=== PATIENT | female | born 1990 | race Two or more races ===

== ENCOUNTER 2018-06-02 10:58 | Emergency (ER) | payer OTHER ==
[~2018-06-02] VITALS: Ht 160 cm; Wt 70.3 kg
[~2018-06-02 10:58] MED LIST: Hydrocodone/Acetaminophen PO; Ibuprofen PO; PNV1TABL25 PO
[2018-06-02] MEDS ORDERED: ACETAMINOPHEN 500 MG TABLET PO ONE (11:30)
[2018-06-02 11:37] LABS: BILIRUBIN,URINE NEGATIVE (NEG); CLARITY,URINE CLEAR; COLOR,URINE YELLOW; NITRITE,URINE NEGATIVE (NEG); PH,URINE 6.5; PROTEIN,URINE NEGATIVE (NEG-TRACE); UROBILINOGEN,URINE 0.2 mg/dL (0.2 mg/dL)
[2018-06-02 11:48] LABS: BACTERIA,URINE 0 /HPF (0-FEW); RBC,URINE 0 /HPF (0-2); SQUAMOUS EPITHELIAL CELL,UR OCC /LPF; WBC,URINE 0 /HPF (0-4)
[2018-06-02 12:03] LABS: BASO # 0.1 x10^3/uL (0.0-0.2); BASO % 1 % (0-3); EOS # 0.1 x10^3/uL (0.0-0.7); EOS % 1 % (0-3); HEMATOCRIT 38.2 % (36.0-47.0); HEMOGLOBIN 13.5 g/dL (12.0-15.5); LYMPH # 2.6 x10^3/uL (1.0-4.8); LYMPH % 30 % (24-48); MEAN CORPUSCULAR HEMOGLOBIN 32 pg (25-35); MEAN CORPUSCULAR HGB CONC 35 g/dL (31-37); MEAN CORPUSCULAR VOLUME 90 fL (79-100); MONO # 0.6 x10^3/uL (0.0-1.1); MONO % 6 % (0-9); NEUT # 5.6 x10^3uL (1.8-7.7); NEUT % 63 % (31-73); PLATELET COUNT 276 x10^3/uL (140-400); RED BLOOD COUNT 4.27 x10^6/uL (3.50-5.40); RED CELL DISTRIBUTION WIDTH 13.6 % (11.5-14.5); WHITE BLOOD COUNT 8.9 x10^3/uL (4.0-11.0)
--- NOTE | 2018-06-02 12:24 | PHYS DOC ---
Past Medical History Past Medical History: Anxiety Past Surgical History: Cholecystectomy, Other Additional Past Surgical Histo: lipo Alcohol Use: Occasionally Drug Use: None Adult General Chief Complaint Chief Complaint: MECHANICAL FALL HPI HPI Patient is a 27 year old F WITH CC OF MECHANICAL FALL, SLIPPED DOWN FOUR STEPS ON THE SNOW BUMPED LEFT LOW BACK CRAMPING RIGHT ABDO INTERMITTENT NONRADIATING HAD SPOTTING FOR A LITTLE WHILE BUT IT STOPPED. TOOK TYLENOL BUT IT IS STILL PRESENT. Review of Systems Review of Systems Constitutional: Denies fever or chills [] Eyes: Denies change in visual acuity, redness, or eye pain [] HENT: Denies nasal congestion or sore throat [] Respiratory: Denies cough or shortness of breath [] Cardiovascular: No additional information not addressed in HPI [] All other systems were reviewed and found to be within normal limits, except as documented in this note. Current Medications Current Medications Current Medications Medications (Trade) Dose Ordered Sig/[place] Start Time Stop Time Status Last Admin Dose Admin Acetaminophen (Tylenol) 1,000 mg 1X ONCE 06/02/18 11:30 06/02/18 11:31 DC 06/02/18 13:19 1,000 MG Allergies Allergies Allergies Coded Allergies Type Severity Reaction Last Updated Verified No Known Drug Allergies 03/09/14 No Physical Exam Physical Exam Constitutional: Well developed, well nourished, no acute distress, non-toxic appearance. [] HENT: Normocephalic, atraumatic, bilateral external ears normal, oropharynx moist, no oral exudates, nose normal. [] Eyes: PERRLA, EOMI, conjunctiva normal, no discharge. [] Neck: Normal range of motion, no tenderness, supple, no stridor. [] Pulmonary: Normal respiratory effort no increased work of breathing no obvious chest wall trauma Abdomen: Bowel sounds normal, soft, MILD RLQ tenderness, no masses, no pulsatile masses. [] Skin: Warm, dry, no erythema, no rash. [] Back: LEFT LOW BACK THERE IS MILD TTP NO OBVIOUS TRAUMA IS SEEN. Extremities: No tenderness, no cyanosis, no clubbing, ROM intact, no edema. [] Neurologic: Alert and oriented X 3, normal motor function, normal sensory function, no focal deficits noted. [] Psychologic: Affect normal, judgement normal, mood normal. [] Current Patient Data Vital Signs Vital Signs Date Time Temp Pulse Resp B/P (MAP) Pulse Ox O2 Delivery O2 Flow Rate FiO2 06/02/18 13:00 78 16 100 06/02/18 11:00 98.5 98/58 (71) Room Air 98.5 Lab Values Laboratory Tests Test 06/02/18 11:00 06/02/18 11:09 06/02/18 11:50 Urine Collection Type Unknown Urine Color Yellow Urine Clarity Clear Urine pH 6.5 Urine Specific Tree[place] 1.025 Urine Protein Negative mg/dL (NEG-TRACE) Urine Glucose (UA) Negative mg/dL (NEG) Urine Ketones (Stick) Negative mg/dL (NEG) Urine Blood Negative (NEG) Urine Nitrite Negative (NEG) Urine Bilirubin Negative (NEG) Urine Urobilinogen Dipstick 0.2 mg/dL (0.2 mg/dL) Urine Leukocyte Esterase Negative (NEG) Urine RBC 0 /HPF (0-2) Urine WBC 0 /HPF (0-4) Urine Squamous Epithelial Cells Occ /LPF Urine Bacteria 0 /HPF (0-FEW) Urine Mucus Mod /LPF POC Urine HCG, Qualitative Hcg positive (Negative) White Blood Count 8.9 x10^3/uL (4.0-11.0) Red Blood Count 4.27 x10^6/uL (3.50-5.40) Hemoglobin 13.5 g/dL (12.0-15.5) Hematocrit 38.2 % (36.0-47.0) Mean Corpuscular Volume 90 fL (79-100) Mean Corpuscular Hemoglobin 32 pg (25-35) Mean Corpuscular Hemoglobin Concent 35 g/dL (31-37) Red Cell Distribution Width 13.6 % (11.5-14.5) Platelet Count 276 x10^3/uL (140-400) Neutrophils (%) (Auto) 63 % (31-73) Lymphocytes (%) (Auto) 30 % (24-48) Monocytes (%) (Auto) 6 % (0-9) Eosinophils (%) (Auto) 1 % (0-3) Basophils (%) (Auto) 1 % (0-3) Neutrophils # (Auto) 5.6 x10^3uL (1.8-7.7) Lymphocytes # (Auto) 2.6 x10^3/uL (1.0-4.8) Monocytes # (Auto) 0.6 x10^3/uL (0.0-1.1) Eosinophils # (Auto) 0.1 x10^3/uL (0.0-0.7) Basophils # (Auto) 0.1 x10^3/uL (0.0-0.2) Maternal Serum HCG Beta Subunit 06070 mIU/mL (0-5) H Laboratory Tests 06/02/18 11:50 EKG EKG BEDSIDE U/S GESTATIONAL SAC. GET FORMAL U/S AND BETA HCG. Radiology/Procedures Radiology/Procedures [] Course & Med Decision Making Course & Med Decision Making Pertinent Labs and Imaging studies reviewed. (See chart for details) [] IMPRESSION: 1. Single living intrauterine identified with heart rate of 158 bpm. Ultrasound age is 5 weeks and 6 days. 2. A 2.2 cm cystic structure identified in the left ovary could be a cyst within could be a corpus luteal cyst. Electronically signed by: Tad Magana MD (06/02/2018 12:53 PM) [id number] FORMAL U/S LOOKS GOOD PT FEELING BETTER REASSURED. Dragon Disclaimer Dragon Disclaimer This electronic medical record was generated, in whole or in part, using a voice recognition dictation system. Departure Departure Impression: Primary Impression: Back pain Disposition: 01 HOME, SELF-CARE Condition: STABLE Referrals: AMADOU HAMEED MD (PCP) LIZETTE MUKHERJEE MD Jun 02, 2018 12:24
--- NOTE | 2018-06-02 12:57 | RAD ---
Examination: Obstetric ultrasound less than 14 weeks HISTORY: History of cramping, spotting COMPARISON: None available. FINDINGS: The uterus measures 12.0 x 8.2 x 7.0 cm. The right ovary measures 3.6 x 1.2 x 1.7 cm. The left ovary measures 4.2 x 2.1 x 2.4 cm. Blood flow identified in the right and left ovaries. There is a 2.2 cm cystic structure identified in the left ovary. Given LMP is 03/28/2018. Expected date of delivery by LMP 01/02/2019. Single living intrauterine identified with heart rate of 158 bpm, The crown-rump length measures 2.6 cm corresponding to 5 weeks and 6 days. Estimated date of delivery by ultrasound 01/27/2018. IMPRESSION: 1. Single living intrauterine identified with heart rate of 158 bpm. Ultrasound age is 5 weeks and 6 days. 2. A 2.2 cm cystic structure identified in the left ovary could be a cyst within could be a corpus luteal cyst. Electronically signed by: Tad Magana MD (06/02/2018 12:53 PM) [place] [id number]
[2018-06-02 13:00] VITALS: BP 99/65
== END 2018-06-02 13:21 | disposition home or self-care (01) ==
LOC: ER 10:58
DX: O26.891 Other specified pregnancy related conditions, first trimester (principal); M54.5 Low back pain; G89.11 Acute pain due to trauma; O99.341 Other mental disorders complicating pregnancy, first trimester; F41.9 Anxiety disorder, unspecified; Z3A.01 Less than 8 weeks gestation of pregnancy; Z90.49 Acquired absence of other specified parts of digestive tract; W10.8XXA Fall (on) (from) other stairs and steps, initial encounter; Y93.89 Activity, other specified; Y92.89 Other specified places as the place of occurrence of the external cause; Y99.8 Other external cause status
CPT/HCPCS: 36415; 76801; 76817; 81001; 81025; 84702; 85025; 86900; 86901; 99284-25

== ENCOUNTER → 2018-08-21 | Outpatient (CLI) | payer OTHER ==
--- NOTE | 2018-08-21 15:56 | KCIC ---
PREG MORE THAN OR EQ TO 14 WKS History: Large for dates Comparison: June 02, 2018 Findings: Multiple sonographic images of the uterus are submitted. There is a single intrauterine fetus, cephalic presentation. There is anterior placenta. There is demonstrable cardiac activity 165 bpm. Four-chamber view of the heart is suboptimal probably due to positioning. There is a three-vessel cord and midline cord insertion. urinary bladder, stomach, and 2 kidneys were visualized. There is no obvious abnormality demonstrated of the visualized spine. Cervix measured 5.5 cm in length. Subjectively amniotic fluid is within normal limits. Maternal adnexal regions are not demonstrated. Lateral ventricle measured 0.7 cm. Cisterna magna measures 0.35 cm. Cerebellum measured 1.7 cm. Compared with the previous exam, there has been adequate interval growth (previous estimated delivery date by ultrasound on 01/27/2019). Biometry data are as follows: Biparietal diameter 3.83 cm corresponds with 17 weeks 5 days Head circumference 14.61 cm corresponds with 17 weeks 5 days Abdominal circumference 11.94 cm corresponds with 17 weeks 5 days Femur length 2.51 cm corresponds with 17 weeks 4 days Adjusted ultrasound age 17 weeks 5 days with estimated delivery date by ultrasound of 01/24/2019. LMP age 17 weeks 1 day with estimated delivery date of 01/28/2019 Estimated weight 203 g +/- 30 g HC/AC ratio within normal limits 1.22 Estimated LOUIS 11.7 cm Impression: 1. There is a single viable intrauterine fetus, cephalic presentation. Submitted four-chamber view of heart is suboptimal which may be positional although reevaluation on follow-up exam is recommended. Electronically signed by: Tu Lees MD (08/21/2018 3:52 PM) [id number]
== END | disposition home or self-care (01) ==
LOC: KCIC US 13:35
PROVIDERS: ATTEND Family Medicine
DX: O26.842 Uterine size-date discrepancy, second trimester (principal); Z3A.17 17 weeks gestation of pregnancy
CPT/HCPCS: 76805

== ENCOUNTER 2018-09-10 17:35 | Observation (INO) | payer OTHER ==
[2018-09-10 18:03] LABS: BILIRUBIN,URINE NEGATIVE (NEG); CLARITY,URINE CLEAR; COLOR,URINE YELLOW; NITRITE,URINE NEGATIVE (NEG); PROTEIN,URINE NEGATIVE (NEG-TRACE); UROBILINOGEN,URINE 0.2 mg/dL (0.2 mg/dL)
[2018-09-10 18:08] LABS: BACTERIA,URINE FEW /HPF (0-FEW); RBC,URINE OCC /HPF (0-2); SQUAMOUS EPITHELIAL CELL,UR FEW /LPF
== END 2018-09-10 18:20 | disposition home or self-care (01) ==
LOC: 3 SO LND 17:35
PROVIDERS: ADMIT Family Medicine; ATTEND Family Medicine
DX: O26.892 Other specified pregnancy related conditions, second trimester (principal); N89.8 Other specified noninflammatory disorders of vagina; R10.2 Pelvic and perineal pain; Z3A.20 20 weeks gestation of pregnancy
CPT/HCPCS: 81001; 87086; G0379

== ENCOUNTER → 2018-11-05 | Outpatient (CLI) | payer OTHER ==
--- NOTE | 2018-11-06 08:44 | KCIC ---
PREG MORE THAN OR EQ TO 14 WKS History: Large for dates Comparison: August 21, 2018 Findings: Multiple sonographic images of the uterus are submitted. There is single intrauterine fetus in cephalic presentation. Cervix measured 4.7 cm in length. Amniotic fluid volume is within normal limits, estimated LOUIS 11.7 cm. There is anterior placenta. movement was noted by technologist. There is demonstrable cardiac activity 141 bpm. Exam does not fully evaluate anatomy. Biometry data are as follows: Biparietal diameter 7.16 cm corresponds with 28 weeks 5 days 63rd percentile Head circumference 25.84 cm corresponds with 28 weeks 1 day 22 percentile Abdominal circumference 24.99 cm corresponds with 29 weeks 1 day 78 percentile Femur length 5.2 cm corresponds with 27 weeks 5 days 27th percentile HC/AC ratio is somewhat decreased 1.03 Estimated weight 1250 g +/- 185 g corresponding with 55 percentile Adjusted ultrasound age 28 weeks 3 days with estimated delivery date of 01/25/2019 (previous estimated delivery date by ultrasound 01/24/2019) LMP age 28 weeks 0 days with estimated delivery date of 01/28/2019 Impression: 1. Compared with the previous exam, there has been appropriate interval growth, biometry data as stated. There is cephalic presentation of the single intrauterine fetus. Electronically signed by: Tu Lees MD (11/06/2018 8:41 AM) [id number]
== END | disposition home or self-care (01) ==
LOC: KCIC US 14:59
PROVIDERS: ATTEND Family Medicine
DX: O36.63X0 Maternal care for excessive fetal growth, third trimester, not applicable or unspecified (principal); Z3A.28 28 weeks gestation of pregnancy
CPT/HCPCS: 76805